=== PATIENT | female | born 1985 | race Caucasian/White ===

== ENCOUNTER → 2024-05-02 13:15 | Outpatient (REF) | payer OTHER, SELFPAY | LOC: PNTC 13:15 | PROVIDERS: ATTENDING PHYSICIAN Nurse Practitioner Family | DX: Z36.0 Encounter for antenatal screening for chromosomal anomalies (principal); Z36.82 Encounter for antenatal screening for nuchal translucency | CPT/HCPCS: 76801; 76813 ==

== ENCOUNTER → 2024-06-25 06:45 | Outpatient (REF) | payer OTHER, SELFPAY | LOC: HWRAD 06:45 | PROVIDERS: ATTENDING PHYSICIAN Nurse Practitioner Primary Care | DX: E04.1 Nontoxic single thyroid nodule (principal) | CPT/HCPCS: 76536 ==

== ENCOUNTER → 2024-06-25 10:46 | Outpatient (REF) | payer OTHER, SELFPAY | LOC: PNTC 10:46 | PROVIDERS: ATTENDING PHYSICIAN Obstetrics & Gynecology | DX: O09.519 Supervision of elderly primigravida, unspecified trimester (principal); O09.812 Supervision of pregnancy resulting from assisted reproductive technology, second trimester | CPT/HCPCS: 76811; 76817 ==

== ENCOUNTER → 2024-08-16 10:21 | Outpatient (REF) | payer OTHER, SELFPAY | LOC: PNTC 10:21 | PROVIDERS: ATTENDING PHYSICIAN Student in an Organized Health Care Education/Training Program | DX: O09.529 Supervision of elderly multigravida, unspecified trimester (principal); O09.819 Supervision of pregnancy resulting from assisted reproductive technology, unspecified trimester | CPT/HCPCS: 76816 ==

== ENCOUNTER → 2024-09-24 10:39 | Outpatient (REF) | payer OTHER, SELFPAY | LOC: PNTC 10:39 | PROVIDERS: ATTENDING PHYSICIAN Student in an Organized Health Care Education/Training Program | DX: O09.529 Supervision of elderly multigravida, unspecified trimester (principal); O09.819 Supervision of pregnancy resulting from assisted reproductive technology, unspecified trimester | CPT/HCPCS: 76816 ==

== ENCOUNTER 2024-09-28 15:05 | Inpatient (IN) | payer OTHER, SELFPAY ==
[2024-09-28 11:15] VITALS: BP 139/86; BMI 33.4
[2024-09-28 12:15] LABS: Urine Albumin 1+ (Neg - Trace); Urine Bilirubin Negative (Negative); Urine Character Clear (Clear); Urine Color Yellow; Urine Glucose Negative (Negative); Urine Ketone Negative (Negative); Urine Leukocyte Negative (Negative); Urine Nitrite Negative (Negative); Urine Occult Blood 4+ (Negative); Urine Urobilinogen Negative (Neg - 1+)
[2024-09-28 13:47] LABS: Hematocrit 34.6 % (37.0-47.0); Hemoglobin 12.4 g/dL (12.0-16.0); Mean Corp Hgb Conc. 35.8 g/dL (33.0-37.0); Mean Corpuscular Hgb 32.9 pg (27.0-31.0); Mean Corpuscular Volume 91.8 fL (81.0-99.0); Mean Platelet Volume 11.5 fL (7.4-10.4); Platelet Count 201 10^3/uL (130-400); Red Blood Cell Count 3.77 10^6/uL (4.20-5.40); Red Cell Dist. Width 12.8 % (11.5-14.5); White Blood Cell Count 11.7 10^3/uL (4.8-10.8)
[2024-09-28] MEDS: TYLENOL 1000 MG PO (13:50)
[2024-09-28] MEDS: BICITRA 30 ML PO (13:57)
[2024-09-28 13:58] LABS: Urine Mucus Many; Urine Squamous Cell >30 /LPF (Few)
[2024-09-28] MEDS: ANCEF 10 IV (13:58)
[2024-09-28] MEDS: LR 1000 IV (13:58)
[2024-09-28 14:00] LABS: Urine Bacteria Many (Negative); Urine Calcium Oxalate Crystals Seen
--- NOTE | 2024-09-28 14:03 | CON.NEO ---
Consultation
-
Date/Time Consultation Requested: 09/28/2024 at 1300
Date/Time Consultation Performed: 09/28/2024 at 1330
Requesting Provider: Dr. Mejias
Performing Provider: Dr. Herron
Reason for Consultation: 34 week delivery with PROM
Consultation - Neonatology
Maternal Labs
Blood Type: O Positive
Antibody Screen: Negative
RPR: Nonreactive
Rubella: Immune
Hep B S Ag: Negative
Hep C: Negative
HIV: Nonreactive
Group B Strep: Unknown (sent, pending)
Chlamydia/GC: Negative
Consult
Points discussed at consult:
- Management at delivery including the possibility of CPAP/intubation/surfactant discussed
- Respiratory: RDS possibility with possibility of worsening for 24-48 hrs, management including CPAP/surfactant/ventilator support may be required. Given 1 dose betamethasone just before delivery.
- Nutrition: Hypoglycemia, need for IV fluids, gradual feed advance, Gavage feeding, importance of colostrum feeding, initiation of expression of colostrum within 3-4 hours, availability of donor milk, safety fo donor milk etc. were discussed. Mom
desires to breastfeed, okay to pump and agreed to the use of donor BM.
- Procedures: Intubation, CPAP, IV placement, blood tests, umbilical arterial or venous lines, gavage feedings were discussed
- CVS: possibility of PDA not discussed in detail at this time
- COLLECTIONS ASSOCIATE: Rare possibility of IVH and need for head US, grading of IVH and superintendent terminal effects of Grade III/IV although extremely rare at >32 weeks were not discussed at this time.
- Jaundice possibility and need for phototherapy discussed
- Family Centered Care: Discussed FCC with emphasis on parental participation during sign off and during management rounds and is encouraged. Availability of ruperto eyes camera also discussed
- COVID-19: Visitation policy, modifications related to COVID-19, ever changing guidelines were discussed
Mom and Dad were given the opportunity to ask questions throughout and open invitation to call if any questions come as they absorb all the information given so far.
Face to Face Time
Total Boht-ju-Pznj Time (in Minutes): 30
Scale Clerk
[2024-09-28 14:16] LABS: ALT (SGPT) 24 U/L (0-35); AST (SGOT) 30 U/L (14-36); Albumin 3.3 g/dl (3.5-5.0); Alkaline Phosphatase 129 U/L (38-126); Blood Urea Nitrogen 5 mg/dl (7-17); Calcium 9.2 mg/dl (8.4-10.2); Carbon Dioxide 19 mmol/L (22-30); Chloride 113 mmol/L (98-107); Estimated Creatinine Clearance > 125 ml/min; Glucose 63 mg/dl (70-99); Potassium 3.8 mmol/L (3.5-5.1); Sodium 137 mmol/L (135-145); Total Bilirubin 0.3 mg/dl (0.2-1.3); Total Protein 6.1 g/dl (6.3-8.2); eGFR > 60.00
[2024-09-28] MEDS: ZITHROMAX INFUSION 250 IV (14:24)
[2024-09-28 15:11] LABS: Cord ABG Comment CORD BLOOD
[2024-09-28 15:14] LABS: B.E. Cord ABG -8.9 mMOL/L; O2 Saturation % Cord ABG 28.4 %; PCO2 Cord ABG 71 mmHg; PO2 Cord ABG 18 mmHg
[2024-09-28 15:17] LABS: B.E. Cord ABG -7.7 mMOL/L; HCO3 Cord ABG 22.6 mmol/L; O2 Saturation % Cord ABG 14.2 %; PCO2 Cord ABG 68 mmHg; PO2 Cord ABG 12 mmHg; pH Cord ABG 7.13
[2024-09-28] MEDS: TORADOL 15 MG IV ×2 (17:06→23:50)
[2024-09-28] MEDS: PITOCIN 30 UNITS/NSS 500 ML IV (18:16)
[2024-09-29] MEDS: TORADOL 15 MG IV ×2 (04:50→12:01)
[2024-09-29 05:47] LABS: Hematocrit 31.8 % (37.0-47.0); Hemoglobin 11.2 g/dL (12.0-16.0); Mean Corp Hgb Conc. 35.2 g/dL (33.0-37.0); Mean Corpuscular Hgb 33.1 pg (27.0-31.0); Mean Corpuscular Volume 94.1 fL (81.0-99.0); Mean Platelet Volume 11.9 fL (7.4-10.4); Platelet Count 178 10^3/uL (130-400); Red Blood Cell Count 3.38 10^6/uL (4.20-5.40)
[2024-09-29] MEDS: MYLICON 80 MG PO (09:10)
[2024-09-29] MEDS: SENOKOT-S 1 TABLET PO (09:10)
--- NOTE | 2024-09-29 09:23 | W.PN.ANS.POP ---
Anesthesia Post Operative
- Anesthesia Post Op Note
Vital Signs Stable-See Nursing Note: Yes
Airway Patent: Yes
Adequate Pain Control: Yes
Change in Mental Status: No
Current Postoperative Nausea & Vomiting: No
Anesthesia Complications: No
General Anesthetic Recall: No
Unplanned Admission: No
Post Op Hydration Adequate: Yes
[2024-09-30] MEDS: MOTRIN 600 MG PO ×3 (00:16→23:01)
[2024-09-30] MEDS: COLACE 100 MG PO (09:01)
[2024-09-30] MEDS: PRENATAL PLUS 1 TABLET PO (09:01)
[2024-09-30] MEDS: TYLENOL 650 MG PO ×2 (09:02→23:01)
[2024-10-01] MEDS: COLACE 100 MG PO (08:25)
[2024-10-01] MEDS: MOTRIN 600 MG PO ×2 (08:25→14:35)
[2024-10-01] MEDS: TYLENOL 650 MG PO ×2 (08:26→14:35)
--- NOTE | 2024-10-01 10:54 | W.DS.TRANS ---
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
-
Discharge Instructions:
Discharge Diagnosis/Procedures delivered via section, PPROM,
history of myomectomy
Diet No restrictions
Activity No strenuous activity
Driving Restrictions No driving for 2 weeks
Bathing Restrictions OK to Shower
Instructions:
Stand-Alone Forms: [facility] Delivery
Changes to Home Medications: No
Discharge Medications:
DC Medications w/original date entered in [facility]
Vitamin D3 1 caplet PO DAILY Supplement 09/28/24
docusate sodium 100 mg capsule (Colace) 100 mg PO DAILY Constipation 09/28/24
prenat.vits,mark,hcb-nijs-biupd 1 tab PO DAILY Supplement 09/28/24
acetaminophen 325 mg tablet 650 mg (2 x 325 mg) PO Q4HPRN PRN mild pain #1 tab 10/01/24
ibuprofen 600 mg tablet 600 mg PO Q6HPRN PRN cramps #60 tabs 10/01/24
Home Medication Changes
Pending Results: No
--- NOTE | 2024-10-01 10:54 | W.DCSUMMARY ---
Discharge Summary
Discharge Data
Date of Admission: 09/28/24
Date of Discharge: 10/01/24
-
Pending Results: No
Hospital Course
Patient is a 38yo who presented to Labor and Delivery on 09/28 with complaints of leakage of fluid. She was evaluated in the office and all testing was negative, but her story was concerning so she was sent to Labor and Delivery for further
evaluation. She had a normal AZALEA but on repeat exam, the ferning was positive. She has a history of a prior laparoscopic myomectomy with entry into the cavity. She underwent primary low transverse section on 09/28, delivering a viable female
infant with Apgars 8/9 and weighing 5lb 6oz. The hysterotomy was tight and she also had tight abdominal muscles, so a Kiwi vacuum was used for the delivery. The procedure was otherwise uncomplicated and the qualitative blood loss was 450mL. On
postoperative day one, she was doing well with no complaints. Her hemoglobin was 11.2. On postoperative day 2, she was doing well with no complaints. On postoperative day 3, she was meeting all postoperative and milestones. She was
tolerating a regular diet, voiding spontaneously, ambulating, and had return of bowel function. was doing well in NICU. She was stable for discharge home. Discharge instructions and return precautions were reviewed and all questions answered
prior to discharge. She was instructed to follow up in 2 weeks for an incision check.
Discharge Plan
-
Patient Disposition: Home (Routine Discharge)
Discharge Diagnosis/Procedures: delivered via section, PPROM, history of myomectomy
Condition: Good
Diet: No restrictions
Activity: No strenuous activity
Driving Restrictions: No driving for 2 weeks
Bathing Restrictions: OK to Shower
Stand Alone Forms: [facility] Delivery
Referrals:
Adair Mejias MD [Active, Gynecology] - in two weeks
UNKNOWN - PT NOT,INTERVIEWE [Family Provider]
Prescriptions:
New
acetaminophen 325 mg Tablet
650 mg PO Q4HPRN PRN (Reason: mild pain) Qty: 1 0RF
ibuprofen 600 mg Tablet
600 mg PO Q6HPRN PRN (Reason: cramps) Qty: 60 0RF
Continued
docusate sodium [Colace] 100 mg Capsule
100 mg PO DAILY
prenat.vits,mark,gjf-pgze-ycuka Tablet
1 tab PO DAILY
Vitamin D3 capsule
1 caplet PO DAILY
Discharge Orders:
Discharge Patient (As Directed); Ordered 10/01/24
Ordered By: Cate Orozco
Discharge Date and Time
Print Language: URUGUAYAN
[2024-10-02 14:10] LABS: Syphilis/T. pallidum Ab Reflex Negative (Negative)
== END 2024-10-01 14:59 | disposition home or self-care (01) | DRG 788 ==
LOC: LDRP 15:05
PROVIDERS: ADMITTING PHYSICIAN Obstetrics & Gynecology; CONSULT PHYSICIAN Pediatrics Neonatal-Perinatal Medicine
PROC: 10D00Z1 Extraction of Products of Conception, Low, Open Approach (ICD-10-PCS; 2024-09-28)
DX: O60.14X0 Preterm labor third trimester with preterm delivery third trimester, not applicable or unspecified (principal); Z3A.34 34 weeks gestation of pregnancy; O42.913 Preterm premature rupture of membranes, unspecified as to length of time between rupture and onset of labor, third trimester; Z37.0 Single live birth
CPT/HCPCS: 88307; 76815; 80053; 81003; 81015; 82803; 85027; 86780; 86850; 86900; 86901; 87070; 87086